=== PATIENT | female | born 1995 | race Caucasian/White ===

== ENCOUNTER → 2023-10-27 17:14 | Outpatient (CLI) | payer OTHER, SELFPAY ==
--- NOTE | 2023-10-27 17:15 | DI.US.S_ITS ---
PROCEDURE: US OB <= 14 WEEKS FETUS INDICATIONS: Dating and viability OUTSIDE/PRIOR DATING DATA: Last menstrual period (LMP): Unknown. Per provider, estimated LUCIEN by LMP is 06/07/2024 TECHNIQUE: Real-time scanning was performed of the fetus and maternal pelvic organs, with image documentation. Endovaginal scanning was also performed to better visualize the fetus and maternal ovaries. COMPARISON: None. FINDINGS: [place]-rump length measures 1.2 cm corresponding to an ultrasound age of 7 weeks and 2 days. heart motion is seen at a rate of 155 beats per minute. Cervical length is 3.2 cm. Trace likely physiologic free fluid is seen in the posterior cul-de-sac. Yolk sac is present IMPRESSION: Living intrauterine gestation at an ultrasound age of 7 weeks and 2 days Dictated by: Get Feliciano M.D. on 10/27/2023 at 20:57 Approved by: Get Feliciano M.D. on 10/27/2023 at 20:59
== END ==
LOC: US 17:15
PROVIDERS: Referring Provider Family Medicine; Visit Provider Family Medicine
DX: O34.01 Maternal care for unspecified congenital malformation of uterus, first trimester (principal); Q51.22 Partial doubling of uterus; Z3A.01 Less than 8 weeks gestation of pregnancy
CPT/HCPCS: 76801

== ENCOUNTER → 2024-01-01 14:24 | Outpatient (CLI) | payer OTHER, SELFPAY ==
[2024-01-01 14:48] LABS: Add Manual Diff / Slide Review NO; Basophils Absolute Auto 0 /uL (0-100); Basophils Percent Auto 0.3 % (0-2); Eosinophils Absolute Auto 100 /uL (0-450); Eosinophils Percent Auto 0.9 % (2-4); Hematocrit 39.5 % (36-46); Hemoglobin 13.7 g/dL (12.0-16.0); Lymphocytes Absolute Auto 1500 /uL (1100-4500); Lymphocytes Percent Auto 12.4 % (25-40); Mean Corpuscular HGB Conc 34.7 % (30-36); Mean Corpuscular Hemoglobin 30.1 PG (26-34); Mean Corpuscular Volume 86.7 fL (80-100); Monocytes Absolute Auto 800 /uL (0-900); Monocytes Percent Auto 6.2 % (3-14); Neutrophils Absolute Auto 9800 /uL (1500-7000); Neutrophils Percent Auto 80.2 % (50-75); Platelet Count 240 X10^3/uL (150-400); Red Blood Cell Count 4.56 X10^6/uL (4.0-5.2); Red Cell Distribution Width 13.3 % (11.6-14.8); White Blood Cell Count 12.2 X10^3/uL (4.5-11.0)
[2024-01-01 15:03] LABS: Appearance Urine UA CLEAR; Bilirubin Urine UA NEGATIVE (NEGATIVE); Color Urine UA YELLOW; Glucose Urine UA NEGATIVE (Negative); Ketones Urine UA TRACE (NEGATIVE); Leukocyte Esterase Urine UA 1+ (NEGATIVE); Nitrite Urine UA NEGATIVE (Negative); Occult Blood Urine UA NEGATIVE (Negative); Protein Urine UA NEGATIVE (Negative); Specific Gravity Urine UA 1.025 (1.000-1.035); Urobilinogen Urine UA 0.2 E.U./dL (0.2)
[2024-01-01 15:14] LABS: Urine Volume 10mL (spun)
[2024-01-01 15:15] LABS: Bacteria Urine Moderate (10-30); RBC Urine None Seen (0-5/HPF); Squamous Epithelial Cell Urine 1-5 /HPF (0-5/HPF); WBC Urine 5-10/HPF (0-5/HPF)
[2024-01-02 18:56] LABS: Hepatitis B Surface Antigen NEGATIVE s/c (NEGATIVE)
[2024-01-02 19:26] LABS: HIV 1 & 2 Ab/Ag 4th Gen Combo NEGATIVE (NEGATIVE); Hep C Virus Ab w/Reflex Quant NEGATIVE s/c (NEGATIVE)
[2024-01-03 10:39] LABS: Varicella IgG Antibody Reactive (Non Reactive)
[2024-01-03 14:49] LABS: Rubella Antibody IgG 20.2 IU/mL (>15)
[2024-01-05 04:09] LABS: RPR Screen Non Reactive (Non Reactive)
== END ==
PROVIDERS: Referring Provider Family Medicine; Visit Provider Family Medicine
DX: Z34.02 Encounter for supervision of normal first pregnancy, second trimester (principal); Z3A.17 17 weeks gestation of pregnancy
CPT/HCPCS: 80055; 81003; 81015; 86787; 86803; 86850; 86900; 86901; 87086; 87389

== ENCOUNTER → 2024-01-04 09:58 | Outpatient (CLI) | payer OTHER, SELFPAY ==
[2024-01-04 11:14] LABS: Natera Collection Specimen Collected
[2024-01-05 07:10] LABS: Alpha Fetoprotein 38.6 ng/mL (0.0-4.7)
== END ==
LOC: LAB 09:59
PROVIDERS: Referring Provider Family Medicine; Visit Provider Family Medicine
DX: Z34.00 Encounter for supervision of normal first pregnancy, unspecified trimester (principal)
CPT/HCPCS: 36415; 82105

== ENCOUNTER → 2024-01-12 07:48 | Outpatient (CLI) | payer OTHER, SELFPAY ==
--- NOTE | 2024-01-12 07:49 | DI.US.S_ITS ---
PROCEDURE: US OB >= 14 WEEKS FETUS INDICATIONS: Anatomy US OUTSIDE/PRIOR DATING DATA: Last menstrual period (LMP): Unknown LMP-based estimated date of delivery (LUCIEN): 06/07/2024 per provider First dating scan (date and location): 10/27/2023 Estimated date of delivery (LUCIEN) from first dating scan: 06/12/2024 The calculations are made using the ultrasound LUCIEN of 06/12/2024. TECHNIQUE: Real-time scanning was performed of the fetus, with image documentation and biometric measurements. Endovaginal scanning: Not performed. COMPARISON: [facility], OB <= 14 WEEKS FETUS, 10/27/2023, 17:25. FINDINGS: General: A single living intrauterine gestation is present. Presentation: Variable Placenta: Placental position is posterior, without previa. Amniotic fluid index: 12.2 cm, normal range is 5-24 cm. Single deepest vertical pocket is 4.5 cm. heart rate: 145 beats per minute. Maternal cervical canal: 4.3 cm long. Normal lower limit is 2.5 cm. biometrics: Biparietal diameter: 4.0 cm, 18 weeks 1 day Head circumference: 15.0 cm, 18 weeks 1 day Abdominal circumference: 13.7 cm, 19 weeks 1 day Femur length: 2.8 cm, 18 weeks 5 days Clinically estimated gestational age: 18 weeks 2 days Composite gestational age from present scan: 18 weeks 4 days Estimated weight and percentile: 259 g, 77th percentile Anatomic survey: Neuro: Ventricles are non-dilated at less than 10 mm. Cisterna magna is normal at 3-11 mm. Cerebellum is normal in size and morphology. Nuchal skin fold: Normal at less than 6 mm between 14-21 weeks gestational age. Face: Nose and lips, facial profile are normal. Spine: No evidence for spina bifida. Heart: 4-chambered heart is present. Interventricular septum is not well seen on left ventricular outflow tract view. Right ventricular outflow tract appears to be within normal limits. Diaphragm: Diaphragm is intact. Stomach: Left-sided stomach is present. Kidneys: No hydronephrosis. Normal is less than 5 mm in 2nd trimester, less than 7 mm in 3rd trimester. Cord: 3-vessel cord has orthotopic insertion. Bladder: Normal in size. Extremities: All 4 extremities identified. IMPRESSION: 1. Single live intrauterine with appropriate interval growth. 2. Interventricular septum is not well seen on the LVOT view, but appears normal on four-chamber heart view. Recommend follow-up exam with revaluation of the left ventricular outflow tract. 3. anatomic survey is otherwise within normal limits. Approved by: Cornelio Caban M.D. on 01/12/2024 at 9:59
== END ==
LOC: US 07:49
PROVIDERS: Referring Provider Family Medicine; Visit Provider Family Medicine
DX: O28.0 Abnormal hematological finding on antenatal screening of mother (principal); R77.2 Abnormality of alphafetoprotein; Z3A.18 18 weeks gestation of pregnancy
CPT/HCPCS: 76811

== ENCOUNTER → 2024-01-14 16:58 | Outpatient (CLI) | payer OTHER, SELFPAY | PROVIDERS: Visit Provider Family Medicine | DX: N88.8 Other specified noninflammatory disorders of cervix uteri (principal); N89.8 Other specified noninflammatory disorders of vagina | CPT/HCPCS: 87210 ==

== ENCOUNTER → 2024-01-26 16:36 | Outpatient (CLI) | payer OTHER, SELFPAY ==
--- NOTE | 2024-01-26 16:37 | DI.US.S_ITS ---
PROCEDURE: US OB FOLLOW UP INDICATIONS: F/u anatomy for LVOT visualization OUTSIDE/PRIOR DATING DATA: Last menstrual period (LMP): 09/01/2023. LMP-based estimated date of delivery (LUCIEN): 06/07/2024. First dating scan (date and location): 10/27/2023. Estimated date of delivery (LUCIEN) from first dating scan: 06/13/2023. The calculations are made using the ultrasound LUCIEN of 06/13/2023. TECHNIQUE: Real-time scanning was performed of the fetus, with image documentation. COMPARISON: [facility], , US OB >= 14 WEEKS FETUS, 01/12/2024, 8:05. FINDINGS: A single living intrauterine gestation is present. Presentation: Vertex. Placenta: Placental position is posterior, without previa. Amniotic fluid index: 12.9 cm, normal range is 5-24 cm. Single deepest vertical pocket is 4.0 cm. heart rate: 145 beats per minute. Maternal cervical canal: 3.2 cm long. Normal lower limit is 2.5 cm. Clinically estimated gestational age: 20 weeks 2 days Heart and outflow tracts are within limits. Interventricular septum is unremarkable. IMPRESSION: Single live intrauterine with gestational age of 20 weeks 2 days. Anatomic structures are unremarkable. Dictated by: Orquidea Almaguer M.D. on 01/27/2024 at 10:06 Approved by: Orquidea Almaguer M.D. on 01/27/2024 at 10:08
== END ==
PROVIDERS: Referring Provider Family Medicine; Visit Provider Family Medicine
DX: Q20.3 Discordant ventriculoarterial connection (principal); Z36.2 Encounter for other antenatal screening follow-up; Z3A.20 20 weeks gestation of pregnancy
CPT/HCPCS: 76816

== ENCOUNTER → 2024-02-19 16:56 | Outpatient (CLI) | payer OTHER, SELFPAY | PROVIDERS: Visit Provider Family Medicine | DX: N89.8 Other specified noninflammatory disorders of vagina (principal) | CPT/HCPCS: 87210 ==

== ENCOUNTER → 2024-03-12 10:59 | Outpatient (CLI) | payer OTHER, SELFPAY ==
[2024-03-12 12:36] LABS: GTT (PREG) 1 Hour PP 50gm Dose 82 mg/dL (76-139)
== END ==
LOC: LAB 10:59
PROVIDERS: Referring Provider Family Medicine; Visit Provider Family Medicine
DX: Z34.00 Encounter for supervision of normal first pregnancy, unspecified trimester (principal)
CPT/HCPCS: 36415; 82950

== ENCOUNTER → 2024-04-19 11:05 | Outpatient (CLI) | payer OTHER, SELFPAY | PROVIDERS: Visit Provider Physician Assistant | DX: R30.0 Dysuria (principal) | CPT/HCPCS: 87086 ==

== ENCOUNTER 2024-04-22 08:07 | Observation (INO) | payer OTHER, SELFPAY ==
--- NOTE | 2024-04-22 08:31 | P.TNLD_ITS ---
Visit Information Visit Information Date of evaluation: 04/22/24 Primary OB Provider: Dionna Ashraf Comments/Additional reasons for admission: 29 yo G1 at 32w5d who presents with pink vaginal discharge this AM when she awoke. She was seen in [facility] 3 days ago for concern for UTI and UA at that time was normal aside from leuk esterase. Urine was sent for culture and has no growth to date. This morning light pink was noted on toilet paper with wiping. [facility] Medical History (Updated 01/14/24 @ 16:58 by Lizbeth Vazquez MA) Anxiety and depression Surgical History (Updated 10/12/23 @ 14:00 by Mirian Cantrell, NAT) No pertinent past surgical history Family History (Updated 10/15/23 @ 13:37 by Dinora Mcdonough RN) Mother Ovarian cancer Asthma Sleep apnea Sister Ovarian cancer Father Hyperlipidemia Colon cancer Depression Grandmother Skin cancer Grandfather Stroke Grandfather Lung cancer Smoker Grandmother Alzheimer's dementia Social History marital status: number of children: 0 household members: spouse lives independently: Yes caregiver/support person: No housing: condominium pets and animals: Yes (dog) education level: college occupational status: student current occupational exposures/hazards: No special khadijah needs: No travel history: recent seatbelt use: always working smoke detector in home: Yes fire extinguisher in home: Yes carbon monox detector in home: Yes firearms in home: Yes firearms unloaded and locked: Yes do you feel safe at home: Yes Smoking Status: Never smoker second hand exposure: No alcohol intake: former substance use type: does not use during the past year weight has: decreased > 10 lbs well-balanced diet: daily or most days daily servings fruits/ve-4 caffeine: Yes (aware of 200mg limit) Type(s) of exercise: walking and weight lifting Review of Systems Review of Systems Narrative: + vaginal bleeding + movement - LOF - dysuria - contractions Exam Narrative Exam Narrative: GEN: Healthy appearing, well-developed, NAD. PSYCH: Good Judgment. AOx3. Normal memory, mood, and affect HEENT: -Head: NC/AT -Eyes: No discharge or redness CV: warm and well perfused LUNGS: breathing comfortably on RA ABD: gravid SKIN: Warm, well perfused. No skin rashes or abnormal lesions : nml external genitalia. Spec exam completed. Cervix without erythema. some irregularities noted at the transformation zone. White discharge present. SVE - 1/thick/high/moderate/mid MSK:No deformities NEURO: No focal deficits Evaluation Evaluation Baseline heart rate: 130 Variability: Moderate (11-25) monitor accelerations: Present Monitor Decelerations: Absent Category of Tracing: Reactive Status: Category l Comments: TOCO showing irregular contractions occassionally Diagnosis, Plan/Disposition Plan/Disposition Plan: 29 yo G1 at 32w5d presenting for light pink spotting. Wet mount completed today at bedside without yeast or trich, Clue cells present. Will treat for BV. SVE 1cm, on repeat exam 2 hours later unchanged. Overall reassuring. Pt not noting any contractions. Will treat for BV, f/up at upcoming Ob apt - UA - Wet mount --> suggestive of BV - SPec exam - GC/CHl testing - FHT reassuring - TOCO showing occassional contractions, pt not feeling these - SVE 1/thick/high/moderate/mid --> unchanged on recheck OB Disposition: home
[2024-04-22 09:19] LABS: Appearance Urine UA CLEAR; Bilirubin Urine UA NEGATIVE (NEGATIVE); Color Urine UA YELLOW; Glucose Urine UA NEGATIVE (Negative); Ketones Urine UA NEGATIVE (NEGATIVE); Leukocyte Esterase Urine UA NEGATIVE (NEGATIVE); Nitrite Urine UA NEGATIVE (Negative); Occult Blood Urine UA NEGATIVE (Negative); Protein Urine UA NEGATIVE (Negative); Urobilinogen Urine UA 0.2 E.U./dL (0.2)
[2024-04-22 09:32] LABS: pH Urine UA 6.5 (4.5-8.0)
[2024-04-22 09:33] LABS: Bacteria Urine Few (2-10); Culture Indicated Urine Cult Not Indicated; RBC Urine 1-5/HPF (0-5/HPF); Squamous Epithelial Cell Urine 1-5 /HPF (0-5/HPF); Urine Volume 10mL (spun); WBC Urine 1-5/HPF (0-5/HPF)
[2024-04-22] MEDS: metroNIDAZOLE 500 MG TABLET PO (09:38)
[2024-04-27 10:28] LABS: Chlamydia trachomatis Negative (Negative); Mycoplasma genitalium Negative (Negative); Neisseria gonorrhoeae Negative (Negative)
== END 2024-04-22 10:30 | disposition home or self-care (01) ==
PROVIDERS: Admitting Provider Family Medicine; Referring Provider Family Medicine; Visit Provider Family Medicine
DX: O26.893 Other specified pregnancy related conditions, third trimester (principal); N89.8 Other specified noninflammatory disorders of vagina; Z3A.32 32 weeks gestation of pregnancy
CPT/HCPCS: 59025; 59050; 81001; 87491; 87563; 87591; G0378; G0379

== ENCOUNTER → 2024-05-20 17:19 | Outpatient (CLI) | payer OTHER, SELFPAY ==
[2024-05-21 12:37] LABS: Strep Grp B PCR NEG for Grp B Strep
== END ==
PROVIDERS: Visit Provider Family Medicine
DX: Z36.85 Encounter for antenatal screening for Streptococcus B (principal)
CPT/HCPCS: 87653

== ENCOUNTER 2024-05-26 08:23 | Inpatient (IN) | payer OTHER, SELFPAY ==
--- NOTE | 2024-05-26 10:28 | P.HPOB_ITS ---
OB HPI Date/Time Date of admission: 05/26/24 Date Patient Seen: 05/26/24 Time Patient Seen: 10:00 History of Present Condition Chief complaint: LABOR LUCIEN Calculator 2 Estimated Delivery Date Method Current WG Current Estimate 06/12/24 Ultrasound #1 37w 4d Other Estimates 06/07/24 LMP (Uncertain) 38w 2d Estimated Gestational Age (weeks): 37w4d : 1 Para: 0 Narrative: 29 yo presenting at 37w4d by first trimester US (uncertain LMP) presenting with spontaneous rupture of membranes at home early this morning at 06:10. Fluid was clear. complicated by outside ultrasound showing possible uterine symptom but was not seen again on further ultrasounds. On arrival she is silvia every 5-6 minutes. care: good care Dating criteria OB: based on 1st trimester US only Ultrasounds: normal 1st trimester US and normal mid trimester US (Normal anatomy ultrasound) Obstetrical complications: none Medical complications OB: none Preadmission Labs Last OB Lab Results: 2 Blood Type A Positive 05/26/24 09:50 Antibody Screen Negative 05/26/24 09:50 Hct 38.3 % (36-46) 05/26/24 09:50 Hgb 13.5 g/dL (12.0-16.0) 05/26/24 09:50 Hep Bs Antigen Negative s/c (NEGATIVE) 01/01/24 14:28 Hepatitis C Antibody Negative s/c (NEGATIVE) 01/01/24 14:28 Rubella Antibody 20.2 IU/mL (>15) 01/01/24 14:28 VZV IgG Antibody Reactive (Non Reactive) 01/01/24 14:28 Glucose 1 Hr 50 gm 82 mg/dL (76-139) 03/12/24 12:07 Group B Strep (PCR) Neg for grp b strep 05/20/24 17:00 Glucose Tolerance Testin hr (82) -: Chlamydia screen: negative, Gonorrhea screen: negative and Urine: negative Genetic Screens: Cell-free DNA: Normal (low risk ) External Labs -: Urine: negative Prior (ies) Hx # Term Pregnancies: 0 Hx # Pregnancies: 0 Evaluation Evaluation Baseline heart rate: 120 Variability: Moderate (11-25) monitor accelerations: Present Monitor Decelerations: Absent Contraction Frequency (minutes): 6 Category of Tracing: Reactive Status: Category l Dilation (cm): 4 Dilation: 3-4 cm Effacement: 60-70% station: -2 Comments: grossly ruptured PFSH Medical History (Updated 01/14/24 @ 16:58 by Lizbeth Vazquez MA) Anxiety and depression Surgical History (Updated 10/12/23 @ 14:00 by Mirian Cantrell, NAT) No pertinent past surgical history Family History (Updated 10/15/23 @ 13:37 by Dinora Mcdonough RN) Mother Ovarian cancer Asthma Sleep apnea Sister Ovarian cancer Father Hyperlipidemia Colon cancer Depression Grandmother Skin cancer Grandfather Stroke Grandfather Lung cancer Smoker Grandmother Alzheimer's dementia Social History marital status: number of children: 0 household members: spouse lives independently: Yes caregiver/support person: No housing: condominium pets and animals: Yes (dog) education level: college occupational status: student current occupational exposures/hazards: No special khadijah needs: No travel history: recent seatbelt use: always working smoke detector in home: Yes fire extinguisher in home: Yes carbon monox detector in home: Yes firearms in home: Yes firearms unloaded and locked: Yes do you feel safe at home: Yes Smoking Status: Never smoker second hand exposure: No alcohol intake: former substance use type: does not use during the past year weight has: decreased > 10 lbs well-balanced diet: daily or most days daily servings fruits/ve-4 caffeine: Yes (aware of 200mg limit) Type(s) of exercise: walking and weight lifting Meds Home Medications and Allergies Home Medications Medication Instructions Recorded Confirmed Type vitamin-ferrous sulfate tab PO 10/12/23 05/20/24 History 27 mg iron-folic acid 0.8 mg tablet Allergies Allergy/AdvReac Type Severity Reaction Status Date / Time kevin Allergy Severe Swelling Verified 05/26/24 09:56 of Lip/Tongue/Throat evergreen trees AdvReac Mild Hives Uncoded 05/26/24 09:57 OB Exam Vital signs Blood Pressure: 110/69 Pulse Rate: 104 Temperature: 98.2 F Objective Labs 05/26/24 09:50 Assessment and Plan Assessment and Plan Assessment and Plan narrative: 1 yo presenting at 37w4d by first trimester US (uncertain LMP) presenting with spontaneous rupture of membranes at home early this morning at 061:00. Fluid was clear. complicated by outside ultrasound showing possible uterine symptom but was not seen again on further ultrasounds. #3 SROM: SROM at 6am this morning., no sign on intraamnitotic infection at this time - Admit to LD - TS, CBC - intermittent monitoring - expectant management - epidural available at request - GBs neg - vertex Time-Based Coding :: [TOTAL MINUTES] spent with patient and on the chart (including review of chart, obtaining history, exam, reviewing outside data, placing orders, documenting exam and treatment plan, and counseling patient) on [DATE].
[2024-05-26 10:37] VITALS: BP 110/69; PULSE 104; TEMP 36.8
[2024-05-26 11:16] VITALS: BP 110/68
[2024-05-26 11:37] LABS: Add Manual Diff / Slide Review NO; Basophils Absolute Auto 0 /uL (0-100); Basophils Percent Auto 0.3 % (0-2); Eosinophils Absolute Auto 100 /uL (0-450); Eosinophils Percent Auto 0.5 % (2-4); Hematocrit 38.3 % (36-46); Hemoglobin 13.5 g/dL (12.0-16.0); Lymphocytes Absolute Auto 1200 /uL (1100-4500); Lymphocytes Percent Auto 11.8 % (25-40); Mean Corpuscular HGB Conc 35.2 % (30-36); Mean Corpuscular Hemoglobin 30.4 PG (26-34); Mean Corpuscular Volume 86.4 fL (80-100); Monocytes Absolute Auto 800 /uL (0-900); Monocytes Percent Auto 7.8 % (3-14); Neutrophils Absolute Auto 8300 /uL (1500-7000); Neutrophils Percent Auto 79.6 % (50-75); Platelet Count 156 X10^3/uL (150-400); Red Blood Cell Count 4.43 X10^6/uL (4.0-5.2); Red Cell Distribution Width 13.4 % (11.6-14.8); White Blood Cell Count 10.4 X10^3/uL (4.5-11.0)
[2024-05-26] MEDS: LACTATED RINGERS 1,000 ML 100 ML IV (15:35)
--- NOTE | 2024-05-26 16:39 | PM.AN.REGBLK ---
Regional Block Pre-procedure PMH/ROS narrative: Healthy 29 yr old requesting MARIA INES/CSE for labor pain Exam narrative: Pt noted to have scolosis, curvature to patient'sright. ASA Class: II Labs: Hct 38.3 % (36-46) 05/26/24 09:50 Plt Count 156 X10^3/uL (150-400) 05/26/24 09:50 Medications: Current Medications Generic Name Dose Route Start Last Admin Trade Name Freq PRN Reason Stop Dose Admin Calcium Carbonate 1,000 mg 05/26/24 11:13 Calcium Carbonate 500 Mg Tab PO Q2HR PRN Dyspepsia Carboprost Tromethamine 250 mcg 05/26/24 11:13 Carboprost 250 Mcg/Ml Ampul IM Q90M PRN Bleeding Fentanyl 50 mcg 05/26/24 11:13 Fentanyl 100 Mcg/2 Ml Inj IV Q1H PRN Pain, Moderate (4-6) Oxytocin/Lactated Ringer's 30 unit in 500 mls @ 200 mls/hr 05/26/24 11:13 Oxytocin Premix IV CONT PRN Bleeding Protocol Tranexamic Acid 1,000 mg/ 100 mls @ 600 mls/hr 05/26/24 11:13 Sodium Chloride IV NOW PRN Bleeding Oxytocin/Lactated Ringer's 30 unit in 500 mls @ 2 mls/hr 05/26/24 11:15 Oxytocin Premix IV TITRATE NIKI Protocol 2 MILLIUNIT/MIN Lactated Ringer's 1,000 mls @ 100 mls/hr 05/26/24 11:15 Lactated Ringers IV 05/26/24 21:14 CONT NIKI Lidocaine HCl 20 ml 05/26/24 11:13 Lidocaine 1% 20 Ml INJ INTRA-OP PRN Post Delivery Methylergonovine Maleate 0.2 mg 05/26/24 11:13 Methylergonovine 0.2 Mg Tablet PO Q6HR PRN Heavy Bleeding Methylergonovine Maleate 0.2 mg 05/26/24 11:13 Methylergonovine 0.2 Mg/Ml Vial IM NOW PRN Bleeding Mineral Oil 30 ml 05/26/24 11:13 Mineral Oil 30 Ml Udc TOP PRN PRN Version Misoprostol 800 mcg 05/26/24 11:13 Misoprostol 200 Mcg Tablet NV NOW PRN Bleeding Misoprostol 400 mcg 05/26/24 11:13 Misoprostol 200 Mcg Tablet SL NOW PRN Bleeding Naloxone HCl 0.2 mg 05/26/24 11:13 Naloxone 0.4 Mg/Ml Vial IV Q2MIN PRN Opiate Reversal Ondansetron HCl 4 mg 05/26/24 11:13 Ondansetron 4 Mg/2 Ml Inj IV Q4HR PRN Nausea And Vomiting Oxytocin 10 unit 05/26/24 11:13 Oxytocin 10 Unit/Ml Vial IM NOW PRN Bleeding Allergies: Allergies Allergy/AdvReac Type Severity Reaction Status Date / Time kevin Allergy Severe Swelling Verified 05/26/24 09:56 of Lip/Tongue/Throat evergreen trees AdvReac Mild Hives Uncoded 05/26/24 09:57 --: Epidural space found. 27g Juan C placed via epidural needle-+CSF. Able to inject 0.5cc 0.25% marcaine. Pt complained of left sided pain with injection. Juan C pulled back and pain dissipated. Stopped injection and performed test dose. Procedure Insertion date: 05/26/24 Insertion time: 16:08 Prep/Local: 1% lidocaine (chloroprep) Interspace: L3-4 Patient position: sitting Needle: 18 gauge Hustead (27g [place]) Loss of resistance with: saline FABIO at (cm): 7 Catheter placed at SKIN (cm): 14 Catheter in SPACE (cm): 7 Insertion: No CSF, No Blood, No Paresthesia with insertion, No Paresthesia with injection and No Test dose reaction Initial Medications TEST DOSE time: 16:09 TEST DOSE: 1.5% lidocaine with epinephrine 1:200k (mL): 3 BOLUS DOSE time: 16:15 BOLUS DOSE (mL): 5 BOLUS DOSE med: 0.25% bupivacaine Infusion INFUSION: 0.125% bupivacaine and with fentanyl 2 mcg/mL Initial rate (mL/hr): 8 Subsequent interventions: 4cc 0.25% marcaine at 1630 100 mcg fentanyl at 1652 for right sided pain in lower abdomen and pelvis Right sided pain has returned- Catheter pulled back to 12cm. 5cc bolus 0.25% bupiv given at 1840 Post-procedure Anesthesia date START: 05/26/24 Anesthesia time START: 15:50 Anesthesia date END: 05/26/24 Anesthesia time END: 19:52 Post-procedure Anesthesia Assessment: Yes CV function: HR/BP stable, Yes Resp function: RR/sat/airway adequate, Yes Post-op hydration adequate, Yes Pain control adequate, Yes Nausea & vomiting absent, Yes Temperature > 36 C and Yes Mental status appropriate
[2024-05-26] MEDS: OXYTOCIN PREMIX 30 UNIT/500 ML PLAST..BAG 350 UNIT IV (19:57)
--- NOTE | 2024-05-26 20:20 | PM.OBPRVD ---
Labor & Delivery Delivery date: 05/26/24 Delivery Time: 19:52 Intrapartal Events: None Cervical ripening method: none Induction method: none Delivery monitor: external FHT Route of delivery: L&D Laceration Description: Perineal - 2nd Degree Estimated blood loss (mL): 150 Anesthesia Type: Epidural Narrative: PROCEDURE: 29 at 37w4d who presented with SROM and was admitted to Labor and Delivery. SROM occured out of hospital at 6:10am this morning with clear fluid. She was admitted and managed expectantly. She progressed and eventually requested epidural pain control which was placed without complication. The patient progressed through the 2nd stage and delivered a viable male with APGARs 8/9 at 19:52 via LOT. The cord was cut and clamped after it a 60 second delay. The placenta delivered with gentle cord traction at 19:56, and appeared complete. The perineum and vagina were inspected with a 2nd degree perineal laceration that was angled slightly to the maternal left. this was repaired in the usual fashion Needle and sponge counts were correct.? The vagina was inspected and no items were left in situ. PREPROCEDURE DIAGNOSIS: Intrauterine at 37w4d GBS neg RH negative POSTPROCEDURE DIAGNOSIS: Intrauterine at 37w4d, delivered Same as preprocedure Plan for aftercare: Routine care
[2024-05-26] MEDS: DERMOPLAST SPRAY 20% 60 ML 1 SPRAY TOP (23:05)
[2024-05-27] MEDS: ACETAMINOPHEN 325 MG TABLET 650 MG PO ×2 (06:16→14:13)
[2024-05-27] MEDS: IBUPROFEN 600 MG TABLET PO ×2 (06:17→14:13)
--- NOTE | 2024-05-27 11:16 | P.DS_ITS ---
History of Present Illness History of Present Illness Date Patient Seen: 05/27/24 Time Patient Seen: 07:30 Chief complaint: LABOR Discharge Providers Provider Date of admission: 05/26/24 08:23 Discharge Date: 05/27/24 Primary care physician: Rasheed VELASQUEZ Provider Consults: 05/27/24 20:41 Consult to Flume Ride Operator Routine Comment: Discharge provider: Dionna Ashraf MD Summary Time Spent with Patient Time spent: Greater than 30 minutes Exam - Pediatric Vital Signs Vital Signs: Vital Signs Temp Pulse BP 98.2 F 104 H 110/69 05/26/24 10:37 05/26/24 10:37 05/26/24 10:37 Additional Exam Additional findings: GEN: NAD HEENT: Red Reflex not seen, external ears w/o tags or pits, No cephalohematoma, hard palate intact NECK: clavical intact bilaterally CV: RRR, no murmurs/rubs/gallops RESP: CTAB, no distress ABD: nl BS, soft, non-distended, no masses, no guarding, clean and dry umbilical stump RECTAL: Patent, no masses, no pits or hair tucks at gluteal cleft : Normal female genitalia for PULSES: 2+ femoral pulses b/l EXTR: No swelling or edema in the BLE, Negative Ortoloni and Sandoval b/l SKIN: No rashes or lesions throughout body, no spinal kassy of hair or dimples, No Jaundice NEURO: moving all extremities equally, good tone, +Prosper, +[place] Barrier Attendant in all four extremities, Good suck reflex, rooting present Objective Labs 05/26/24 09:50 Labs: Laboratory Results - last 24 hr 05/26/24 09:50 WBC 10.4 RBC 4.43 Hgb 13.5 Hct 38.3 MCV 86.4 MCH 30.4 MCHC 35.2 RDW 13.4 Plt Count 156 Neut % (Auto) 79.6 H Lymph % (Auto) 11.8 L [place] % (Auto) 7.8 Eos % (Auto) 0.5 L Baso % (Auto) 0.3 Neut # (Auto) 8300 H Lymph # (Auto) 1200 [place] # (Auto) 800 Eos # (Auto) 100 Baso # (Auto) 0 Blood Type A Positive Antibody Screen Negative Discharge Plan Discharge Plan Patient Disposition: Home Discharge orders & Medications Prescriptions: Continued vit-ferrous sulfat-FA 27 mg iron- 0.8 mg tablet 1 tab PO DAILY Follow up/Referrals: ProviderRasheed [Primary Care Provider] - Visit Report/Discharge Packet Stand Alone Forms: Discharge: Care, Patient Portal/API, Stroke Signs & Symptoms Discharge Data Primary Care Provider: Rasheed Buckner
--- NOTE | 2024-05-27 11:20 | P.DS_ITS ---
Discharge Providers Provider Date of admission: 05/26/24 08:23 Discharge Date: 05/27/24 Primary care physician: Rasheed VELASQUEZ Provider Consults: 05/27/24 20:41 Consult to Airplane Coverer Routine Comment: Discharge provider: Dionna Ashraf MD Summary Hospital Course Date Patient Seen: 05/27/24 Time Patient Seen: 07:30 Hospital Course: 29 at 37w4d who presented with SROM and was admitted to Labor and Delivery. SROM occured out of hospital at 6:10am this morning with clear fluid. She was admitted and managed expectantly. She progressed and eventually requested epidural pain control which was placed without complication. The patient progressed through the 2nd stage and delivered a viable male infant with APGARs 8/9 at 19:52 via LOT. The cord was cut and clamped after it a 60 second delay. The placenta delivered with gentle cord traction at 19:56, and appeared complete. The perineum and vagina were inspected with a 2nd degree perineal laceration that was angled slightly to the maternal left. this was repaired in the usual fashion she did well. Was voiding easily. Pain was well controlled with oral meds. Bleeding was as expected. She is planning on natural family planning for contraception. WE reviewed risks of irregular cycle and encouraged no intercoruse for 6 weeks then back up method for the first few months after until more aware of cycle regularity Long discussion held today about carrier screen testing as her partner is a CF carrier. Also discussed myriad testing for genetic CA screening due to fam hx of ovarian CA and colon CA Peripartum Data Delivery Method: Natural Vaginal Laceration Description: Perineal - 2nd Degree complications: none Status at Discharge Cognitive/behavioral status at discharge: oriented Time Spent with Patient Time attestation: Total time spent providing and/or coordinating discharge services: Time spent: Less than 30 minutes Objective Labs 05/26/24 09:50 Labs: Laboratory Results - last 24 hr 05/26/24 09:50 WBC 10.4 RBC 4.43 Hgb 13.5 Hct 38.3 MCV 86.4 MCH 30.4 MCHC 35.2 RDW 13.4 Plt Count 156 Neut % (Auto) 79.6 H Lymph % (Auto) 11.8 L [place] % (Auto) 7.8 Eos % (Auto) 0.5 L Baso % (Auto) 0.3 Neut # (Auto) 8300 H Lymph # (Auto) 1200 [place] # (Auto) 800 Eos # (Auto) 100 Baso # (Auto) 0 Blood Type A Positive Antibody Screen Negative Exam Narrative Exam Narrative: Gen; well appearing, sitting up in bed Eyes; EOMI CV: warm and well perfused Pulm: breathing comfortably on RA MSK: scant symmetric edema Discharge Plan Discharge Plan Patient Disposition: Home Discharge orders & Medications Prescriptions: Continued vit-ferrous sulfat-FA 27 mg iron- 0.8 mg tablet 1 tab PO DAILY Follow up/Referrals: ProviderRasheed [Primary Care Provider] - Visit Report/Discharge Packet Stand Alone Forms: Discharge: Care, Patient Portal/API, Stroke Signs & Symptoms Discharge Data Primary Care Provider: Rasheed Buckner Discharges patient from system. Discharge Date/Time: 05/27/24 16:30
== END 2024-05-27 16:30 | disposition home or self-care (01) | DRG 807 ==
PROVIDERS: Admitting Provider Student in an Organized Health Care Education/Training Program; Referring Provider Student in an Organized Health Care Education/Training Program; Visit Provider Student in an Organized Health Care Education/Training Program
DX: O42.02 Full-term premature rupture of membranes, onset of labor within 24 hours of rupture (principal); Z37.0 Single live birth; Z3A.37 37 weeks gestation of pregnancy; O70.1 Second degree perineal laceration during delivery
CPT/HCPCS: 36415; 59025; 59050; 59400; 85025; 86850; 86900; 86901; G0379; J2590; J3010